=== PATIENT | male | born 1970 | race Caucasian/White ===

== ENCOUNTER 2018-09-02 19:40 | Inpatient (IN) | payer SELFPAY ==
[~2018-09-02] VITALS: Ht 177.8 cm; Wt 132.0 kg
--- NOTE | ~2018-09-02 | EKG ---
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
--- NOTE | ~2018-09-02 | EKG ---
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
--- NOTE | ~2018-09-02 | EKG ---
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
[~2018-09-02 19:40] MED LIST: ACULAR 3 ML3 M1 OP; ACULAR 3ML 3 ML5 ML OPH; ANAPROX DS550 MG PO; COLACE100 MG PO; FLEXERIL10 MG PO; HYDROCODONE BIT1 T11 PO; MEDROL DOSEPAK4 MG PO; PERCOCET 325 MG1 TA2 PO; REMERON30 MG PO; ROBAXIN500 MG PO; SEPTRA DS 800 M1 TAB PO; TOBREX OPHTH S2.5 ML OPH; TRAMADOL HCL50 MG PO; VISTARIL25 MG PO
[2018-09-02 19:46] VITALS: BP 159/86
[2018-09-02 20:10] VITALS: BP 141/84
[2018-09-02 20:21] LABS: BASO # 0.1 10*3/uL (0.0-0.1); BASO % 0.6 % (0.0-1.0); EOS # 0.3 10*3/uL (0.0-0.4); EOS % 3.5 % (1.0-4.0); HEMATOCRIT 36.7 % (42.0-52.0); HEMOGLOBIN 12.1 g/dl (14.0-18.0); LYMPH # 2.4 10*3/uL (1.3-4.4); LYMPH % 25.1 % (27.0-41.0); MEAN CELL VOLUME 94.3 fl (80.0-94.0); MEAN CORPUSCULAR HGB 31.1 pg (27.0-31.0); MEAN PLATELET VOLUME 11.1 fl (9.6-12.3); MONO # 0.8 10*3/uL (0.1-1.0); MONO % 8.5 % (3.0-9.0); NEUT % 61.9 % (47.0-73.0); PLATELET COUNT AUTOMATED 278 10*3/uL (130-400); RED BLOOD COUNT 3.89 10*6/uL (4.50-5.90); RED CELL DISTRI WIDTH 13.6 % (0-14.5); WHITE BLOOD COUNT 9.7 10*3/uL (4.8-10.8)
[2018-09-02 20:37] LABS: INTERNATIONAL NORM RATIO 0.9 (2.0-3.5)
[2018-09-02 20:42] LABS: ALKALINE PHOSPHATASE 89 U/L (45-117); BUN 17 mg/dl (7-24); CHLORIDE 103 mmol/L (98-107); CREATININE 1.46 mg/dL (0.70-1.30); POTASSIUM 3.3 mmol/L (3.5-5.1); SGOT/AST 39 IU/L (3-35); SGPT/ALT 60 U/L (12-78); SODIUM 141 mmol/L (136-145); TOTAL PROTEIN 8.2 gm/dL (6.4-8.2)
[2018-09-02 20:43] LABS: TROPONIN I < 0.015 ng/ml (<0.045)
[2018-09-02 20:48] VITALS: BP 150/81
[2018-09-02 21:42] VITALS: BP 131/74
[2018-09-02 22:34] VITALS: BP 140/71
--- NOTE | 2018-09-02 22:37 | NUR ---
PATIENT IN BED AWAKE AND ALERT AT THIS TIME. RESP EASY AND NONLABORED. NO DISTRESS NOTED. CONT PER DIEM RN AND PULSE OX IN PLACE. RN WILL CONT TO MONITOR.
[2018-09-03] VITALS (7 sets, daily range): BP systolic 120–147; BP diastolic 55–88
--- NOTE | 2018-09-03 01:53 | NUR ---
PATIENT IN BED RESTING EYES AT THIS TIME. NO DISTRESS NOTED. RESP EASY AND NONLABORED. RN WILL CONT TO MONITOR
--- NOTE | 2018-09-03 02:00 | NUR ---
PATIENT PULLED OUT THE LEFT EJ THAT DR JETER INSERTED. PATIENT STATES HE MUST HAVE PULLED IT OUT IN HIS SLEEP. DR JETER NOTIFIED.
[2018-09-03 02:13] LABS: BASO % 0.4 % (0.0-1.0); EOS # 0.1 10*3/uL (0.0-0.4); EOS % 1.2 % (1.0-4.0); HEMATOCRIT 35.8 % (42.0-52.0); HEMOGLOBIN 11.8 g/dl (14.0-18.0); LYMPH # 0.9 10*3/uL (1.3-4.4); LYMPH % 12.7 % (27.0-41.0); MEAN CELL VOLUME 93.7 fl (80.0-94.0); MEAN CORPUSCULAR HGB 30.9 pg (27.0-31.0); MEAN PLATELET VOLUME 10.8 fl (9.6-12.3); MONO # 0.1 10*3/uL (0.1-1.0); MONO % 2.1 % (3.0-9.0); NEUT # 5.6 10*3/uL (2.3-7.9); NEUT % 83.3 % (47.0-73.0); PLATELET COUNT AUTOMATED 225 10*3/uL (130-400); RED BLOOD COUNT 3.82 10*6/uL (4.50-5.90); RED CELL DISTRI WIDTH 13.4 % (0-14.5); WHITE BLOOD COUNT 6.7 10*3/uL (4.8-10.8)
[2018-09-03 02:27] LABS: BUN 14 mg/dl (7-24); CHLORIDE 103 mmol/L (98-107); CREATININE 1.18 mg/dL (0.70-1.30); POTASSIUM 3.7 mmol/L (3.5-5.1); SODIUM 137 mmol/L (136-145)
[2018-09-03 02:32] LABS: CHOLESTEROL 185 mg/dL (<200); HDL CHOLESTEROL 60 mg/dl (40-60); LDL CHOLESTEROL 111 mg/dL (9-159); PHOSPHOROUS 2.5 mg/dL (2.5-4.9); TRIGLYCERIDES 68 mg/dl (<150); VLDL CHOLESTEROL 14 mg/dL (6-40)
[2018-09-03 02:38] LABS: THYROID STIM HORMONE (HS) 0.722 uIU/ml (0.358-4.75)
--- NOTE | 2018-09-03 03:11 | NUR ---
DR WIGGINS WAS NOTIFIED BY DR JETER FOR A LINE PLACEMENT AT THIS TIME, AWAITING DR WIGGINS.
[2018-09-03 04:40] LABS: URINE AMPHETAMINES < 1000 (1000ng/ml); URINE BARBITURATES < 200 (200ng/ml); URINE BENZODIAZEPINES < 200 (200ng/ml); URINE CANNABINOIDS (THC) < 50 (50ng/ml); URINE COCAINE < 300 (300ng/ml); URINE METHADONE < 300 (300ng/ml); URINE OPIATES < 300 (300ng/ml)
[2018-09-03 04:41] LABS: URINE PHENCYCLIDINE < 25 (25ng/ml)
--- NOTE | 2018-09-03 07:33 | NUR ---
REPORT FROM CT, PERI RN. BREAKFAST TRAY ORDERED. PT RESTING COMFORTABLY IN BED. WILL CONTINUE TO MONITOR. VSS.
--- NOTE | 2018-09-03 08:00 | NUR ---
PT HAS BREAKFAST TRAY
--- NOTE | 2018-09-03 09:07 | NUR ---
VSS. NO VOICED NEEDS/COMLAINTS AT THIS TIME. HE IS ABLE TO AMBULATE TO THE BATHROOM NEEDED.
--- NOTE | 2018-09-03 10:04 | NUR ---
PT HAS REMOVED RN GYNECOLOGY AND BP CUFF MULTIPLE TIMES. IV PLACED BY DR. WIGGINS HAS BEEN REMOVED BY PATIENT. WILL ATTEMPT IV ACCESS.
--- NOTE | 2018-09-03 12:34 | NUR ---
IV MEDS LATE DUE TO INABILITY TO OBTAIN VASCULAR ACCESS.
--- NOTE | 2018-09-03 12:53 | NUR ---
PT WOULD PREFER TO GO HOME INSTEAD OF ADMISSION. HE HAS BEEN UP AND AMBULATING TO BATHROOM. STATES HE AND HIS WILL BE ABLE TO MANAGE HIM AT HOME. DR. HSU CALLED AND REPORTS HE WILL BE DOWN TO TALK WITH PATIENT. [facility]VASC GIVEN SCHEDULED.
--- NOTE | 2018-09-03 12:58 | NUR ---
PT WILL BE DISCHARGED FROM ER. DR HSU WAS AT BEDSIDE AND SPOKE WITH PATIENT AND HIS FAMILY.
--- NOTE | 2018-09-03 12:59 | NUR ---
PT GIVEN LUNCH TRAY.
--- NOTE | 2018-09-03 15:00 | NUR ---
A 48, admitted to , under the services of LYNN Ferguson DO with a diagnosis of CHEST PAIN. Chief complaint is SOB, CHEST PAIN. Patient arrived via ambulatory from ER. Monitor applied. Initial assessment completed. Vital signs taken and recorded. LYNN FERGUSON DO notified of admission to the unit. Orders received. See assessment for past medical history, medications and allergies. Patient and/or family oriented to unit. [facility] visitation policy reviewed. Clothing/patient valuable form completed. AGATA BRIONES
--- NOTE | 2018-09-03 15:54 | NUR ---
DR. MEJIA NOTIFIED OF CONSULT. ORDERS OBTAINED.
--- NOTE | 2018-09-03 21:16 | NUR ---
NOTIFIED DR WIGGINS OF PATIENT LEAVING THE FLOOR FOR THE 2ND TIME TONIGHT SINCE 1900 AND THAT HE NOW HAS IV ACCESS AND HAS A HISTORY OF DRUG ABUSE. PATIENT IS STILL TO GET ROCEPHIN AND AZITHROMYCIN AT 0135. DR WIGGINS STATED THAT PATIENT REALLY NEEDS THE ROCEPHIN BUT IF HE DOES IT AGAIN TO LET HIM KNOW. PATIENT MADE AWARE BOTH TIMES AFTER LEAVING THE FLOOR THAT THIS IS NOT ALLOWED. 2ND TIME HIS GIRLFRIEND WAS WITH HIM. 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 NURSING GARAGE HAND MADE AWARE
--- NOTE | 2018-09-03 22:04 | NUR ---
DR MEJIA IN TO SEE PATIENT AT THIS TIME.
[2018-09-04] VITALS: BP 152/81
[2018-09-04 06:50] LABS: BASO % 0.1 % (0.0-1.0); HEMOGLOBIN 12.4 g/dl (14.0-18.0); LYMPH # 1.2 10*3/uL (1.3-4.4); LYMPH % 8.4 % (27.0-41.0); MEAN CELL VOLUME 92.5 fl (80.0-94.0); MEAN CORPUSCULAR HGB CONC 33.5 g/dl (33.0-37.0); MEAN PLATELET VOLUME 11.4 fl (9.6-12.3); MONO # 0.6 10*3/uL (0.1-1.0); MONO % 4.4 % (3.0-9.0); NEUT # 12.6 10*3/uL (2.3-7.9); NEUT % 86.6 % (47.0-73.0); PLATELET COUNT AUTOMATED 232 10*3/uL (130-400); RED CELL DISTRI WIDTH 13.4 % (0-14.5); WHITE BLOOD COUNT 14.6 10*3/uL (4.8-10.8)
[2018-09-04 06:59] LABS: BUN 22 mg/dl (7-24); CHLORIDE 107 mmol/L (98-107); CREATININE 0.97 mg/dL (0.70-1.30); POTASSIUM 4.3 mmol/L (3.5-5.1); SODIUM 143 mmol/L (136-145)
[2018-09-04 08:00] VITALS: BP 127/72
--- NOTE | 2018-09-04 08:44 | NUR ---
PER DR MEJIA PT MAY EAT DUE TO HOLIDAY AND NO STRESS TEST TODAY.
[2018-09-04 12:00] VITALS: BP 121/78
--- NOTE | 2018-09-04 15:46 | NUR ---
PATIENTS' MONITOR FOUND LAYING IN BED. PATIENT NO WHERE TO BE FOUND ON FLOOR. SECURITY NOTIFIED AND PATIENT DESCRIPTION GIVEN. ATTEMPTED TO NOTIFY DR. STEELE BUT NO ANSWER ON CELL PHONE. WILL CONTINUE TO ATEMPT TO NOTIFY. NO PATIENT BELONGING FOUND IN ROOM. IV ACCESS WAS INTACT DURING LAST IV ASSESSMENT.
--- NOTE | 2018-09-04 15:55 | NUR ---
ATTEMPTED TO NOTIFY DR. STEELE ABOUT PATIENT LEAVING HOSPITAL AMA BUT NO ANSWER ON HOSPITALISTS PHONE.
--- NOTE | 2018-09-04 16:00 | NUR ---
I SEARCHED PT ROOM AND NO IV FOUND IN GARBAGE. I NOTIFIED THE FORESTRY LABORER AND SHE INFORMED ME TO NOTIFY THE POLICE.
--- NOTE | 2018-09-04 16:07 | NUR ---
[facility] POLICE DEPARTMENT NOTIFIED OF PATIENT LEAVING HOSPITAL AGAINST MEDICAL ADVICE WITH AN IV IN HIS LEFT ARM. NOTIFIED DISPATCHER THAT HE WILL NEED TO BE RETURNED TO HOSPITAL TO HAVE HIS IV REMOVED.
--- NOTE | 2018-09-04 16:12 | NUR ---
ATTEMPTED TO NOTIFY DOCTOR IVETTE THAT PATIENT LEFT HOSPITAL AMA. NO ANSWER ON HOSPITALIST PHONE.
--- NOTE | 2018-09-04 16:25 | NUR ---
DOCTOR STEELE MADE AWARE OF PATIENT LEAVING HOSPITAL AMA.
== END 2018-09-04 16:29 | disposition left against medical advice (07) | DRG 871 ==
LOC: ED 19:40 → EDHOLD 22:46 → 4E 09-03 12:44
PROVIDERS: Emergency Medicine; Family Medicine; Student in an Organized Health Care Education/Training Program; ADMIT Internal Medicine
DX: A41.9 Sepsis, unspecified organism (principal); J18.9 Pneumonia, unspecified organism; N17.0 Acute kidney failure with tubular necrosis; Z68.41 Body mass index [BMI] 40.0-44.9, adult; I25.10 Atherosclerotic heart disease of native coronary artery without angina pectoris; G40.909 Epilepsy, unspecified, not intractable, without status epilepticus; F17.210 Nicotine dependence, cigarettes, uncomplicated; E66.9 Obesity, unspecified; D53.9 Nutritional anemia, unspecified; E87.6 Hypokalemia; R73.9 Hyperglycemia, unspecified; R74.0 Nonspecific elevation of levels of transaminase and lactic acid dehydrogenase [LDH]; Z82.49 Family history of ischemic heart disease and other diseases of the circulatory system; Z88.6 Allergy status to analgesic agent; Z88.8 Allergy status to other drugs, medicaments and biological substances; Z79.899 Other long term (current) drug therapy; Z90.89 Acquired absence of other organs; Z80.8 Family history of malignant neoplasm of other organs or systems; Z87.311 Personal history of (healed) other pathological fracture; Z71.6 Tobacco abuse counseling; Z53.21 Procedure and treatment not carried out due to patient leaving prior to being seen by health care provider

== ENCOUNTER 2020-12-17 23:31 | Emergency (ER) | payer SELFPAY | END 2020-12-18 01:35 | disposition left against medical advice (07) | LOC: ED 23:31 | DX: S91.312A Laceration without foreign body, left foot, initial encounter (principal); Z53.21 Procedure and treatment not carried out due to patient leaving prior to being seen by health care provider; X58.XXXA Exposure to other specified factors, initial encounter; Y93.89 Activity, other specified; Y92.89 Other specified places as the place of occurrence of the external cause; Y99.9 Unspecified external cause status ==

== ENCOUNTER 2021-01-13 03:57 | Emergency (ER) | payer SELFPAY | END 2021-01-13 06:47 | disposition left against medical advice (07) | LOC: ED 03:57 | DX: M25.562 Pain in left knee (principal); Z53.21 Procedure and treatment not carried out due to patient leaving prior to being seen by health care provider ==

== ENCOUNTER 2022-02-23 02:57 | Emergency (ER) | payer SELFPAY ==
[~2022-02-23] VITALS: Ht 180.3 cm; Wt 127.0 kg
== END 2022-02-23 03:05 | disposition home or self-care (01) ==
LOC: ED 02:57
DX: Z00.00 Encounter for general adult medical examination without abnormal findings (principal); Z88.8 Allergy status to other drugs, medicaments and biological substances; Z88.6 Allergy status to analgesic agent; Z90.89 Acquired absence of other organs; Z87.891 Personal history of nicotine dependence

== ENCOUNTER 2022-12-22 01:04 | Emergency (ER) | payer SELFPAY ==
[~2022-12-22] VITALS: Ht 172.7 cm; Wt 125.6 kg
[2022-12-22] MEDS ORDERED: PREDNISONE50 MG PO (01:16)
[2022-12-22] MEDS ORDERED: VALTREX500 MG PO (01:16)
== END 2022-12-22 01:48 | disposition home or self-care (01) ==
LOC: ED 01:04
DX: B02.9 Zoster without complications (principal); M54.50 Low back pain, unspecified; M79.605 Pain in left leg; Z88.8 Allergy status to other drugs, medicaments and biological substances; Z88.5 Allergy status to narcotic agent; Z88.6 Allergy status to analgesic agent; Z90.89 Acquired absence of other organs; Z98.890 Other specified postprocedural states; F17.200 Nicotine dependence, unspecified, uncomplicated